=== PATIENT | female | born 1945 | race Caucasian/White ===

== ENCOUNTER 2019-11-02 07:12 | Inpatient (IN) | payer MEDICARE ==
[2019-11-02 10:01] LABS: CKMB 9.2 ng/mL (0-6.6)
[2019-11-02] MEDS ORDERED: Bisacodyl 5 MG TAB PO PRN (11:41)
[2019-11-02] MEDS ORDERED: Acetaminophen 325 MG TAB PO PRN (11:41)
[2019-11-02] MEDS ORDERED: Dextrose 5% in Water 1,000 ML IV PRN (11:54)
[2019-11-02] MEDS ORDERED: Dextrose 50% Abboject 50 ML SYRINGE SLOW IVP PRN (11:54)
--- NOTE | 2019-11-02 12:19 | HP ---
PRIMARY CARE PROVIDER: Fer Justice MD CHIEF COMPLAINT: Fall. HISTORY OF PRESENT ILLNESS: Ms. Hairston is a pleasant 74-year-old lady, who was seen at [facility] on November 02, 2019, following transfer from emergency room at [place]. The patient lives alone at home. She reports that she has been having frequent falls over the last couple of months. She reports falling on a weekly basis. She reports that when she is walking, she loses balance and falls. She denies any dizziness or chest pain. She denies any palpitations. She denies any loss of consciousness. She fell yesterday. She reports that she was on the ground for about 40 minutes because she could not get up. She was subsequently found by her daughter's fiance and taken to the emergency room. She denies any dysuria or increased frequency of urination. She denies any nausea or vomiting. REVIEW OF SYSTEMS: All systems were reviewed and found to be negative except for the pertinent positives mentioned above. PAST MEDICAL HISTORY: Coronary artery disease, myocardial infarction, diabetes mellitus type 2, dyslipidemia, and hypertension. PAST SURGICAL HISTORY: Cancer surgery, coronary artery bypass graft, and tubal ligation. PSYCHIATRIC HISTORY: Depression. SOCIAL HISTORY: The patient denies tobacco use, alcohol use, or recreational drug use. FAMILY HISTORY: Coronary artery disease in father and brother. ALLERGIES: NO KNOWN DRUG ALLERGIES. CURRENT MEDICATIONS: 1. Amlodipine 5 mg daily. 2. Sertraline 50 mg daily. 3. Lisinopril 20 mg 2 times a day. 4. Metformin 500 mg 2 times a day. 5. Crestor 5 mg daily. 6. Hydrochlorothiazide 25 mg daily. PHYSICAL EXAMINATION: GENERAL: On examination, Ms. Hairston is awake and alert, not in acute distress. VITAL SIGNS: Blood pressure is 170/59, pulse 84, respiratory rate 19, and oxygen saturation 98% on room air. She is afebrile. EYES: No scleral icterus. No conjunctival pallor. ENT: Moist mucosal membranes. No oropharyngeal erythema or exudates. NECK: Supple and nontender. Trachea is midline. RESPIRATORY: Accessory muscles of breathing are not active. Chest wall movements are symmetric bilaterally. Lungs are clear to auscultation without wheeze, rhonchi, or crepitations. CARDIOVASCULAR: S1 and S2 are heard, regular. Peripheral pulses palpable. ABDOMEN: Soft and nontender. Bowel sounds are heard. NEUROLOGIC: Cranial nerves 2 through 12 are intact. No focal motor or sensory deficits. Deep tendon reflexes 2+, plantars downgoing bilaterally. MUSCULOSKELETAL: Power is 5/5 in all 4 extremities. SKIN: No rashes. LYMPHATIC: No cervical lymphadenopathy. PSYCHIATRIC: Normal mood. Normal affect. The patient is oriented to person, place, month, and year, not to date. LABORATORY DATA: Ms. Hairston's labs and investigations were reviewed. I reviewed her electrocardiogram, which shows normal sinus rhythm, no ST changes to suggest an acute coronary syndrome. I also reviewed her chest x-ray, which does not show any pulmonary infiltrates. Noncontrast CT scan of the brain was unremarkable. Facial bones CT did not show any acute facial bone fracture. She has leukocytosis of 15,300 white cells, of which 82% are neutrophils. Hemoglobin and platelet count are normal. Sodium is normal. Potassium is decreased at 3.4. Creatinine is normal at 0.62. Blood urea nitrogen is elevated at 31. AST is elevated at 81. ALT, alkaline phosphatase, and bilirubin levels are normal. CK is elevated at 1615. Troponin I is indeterminate at 0.039. BNP is normal. Urinalysis is negative for nitrite and leukocyte esterase. ASSESSMENT AND PLAN: Ms. Hairston is a pleasant 74-year-old lady, who was seen at [facility] on November 02, 2019. Her problem list includes: 1. Rhabdomyolysis: Ms. Hairston is presenting with rhabdomyolysis. She will be admitted to the hospital for IV hydration and rechecking her CK level. Please note, her renal function is normal at this time. 2. Falls: Physical Therapy/Occupational Therapy evaluation and treatment, further management depending on the recommendations. 3. Coronary artery disease: This appears to be stable. The patient's troponin I is indeterminate, but she denies any chest pain. We will continue to monitor. 4. Diabetes mellitus type 2: Start Accu-Cheks and insulin sliding scale. 5. Hypertension: Monitor vital signs, titrate antihypertensives as needed. 6. Depression: Mild, stable. 7. Dyslipidemia: Continue Crestor. Many thanks for allowing me to participate in your patient's care. Please feel free to contact me with any questions or concerns. LEVEL OF RISK: High. LEVEL OF COMPLEXITY: High. Job ID: [id number]
[2019-11-02 13:43] LABS: Troponin I 0.032 ng/mL (< 0.028)
[2019-11-02 16:12] LABS: Troponin I 0.038 ng/mL (< 0.028)
[2019-11-02] MEDS ORDERED: Metoprolol Tartrate 100 MG TAB PO SCH (23:59)
[2019-11-03] MEDS: Sodium Chloride 0.9% 1,000 ML IV SCH ×5 (01:09→23:42)
[2019-11-03 04:44] LABS: #Eosinphils 0.2 thou/uL (0.0-0.7); #Lymphocytes 1.9 thou/uL (1.20-3.40); #Monocytes 1.1 thou/uL (0.11-0.59); #Neutrophils 6.2 thou/uL (1.40-6.50); %Basophils 0.1 % (0.0-1.0); %Eosinophils 2.2 % (0.0-10.0); %Lymphocytes 20.6 % (21.0-51.0); %Monocytes 11.3 % (0.0-10.0); %Neutrophils 65.9 % (42.0-75.0); Hemoglobin 11.4 g/dL (12.0-16.0); Mean Corpuscular HGB CONC 32.4 g/dL (32.0-36.0); Mean Corpuscular Hemoglobin 29.6 pg (27.0-31.0); Mean Corpuscular Volume 91.3 fL (78.0-98.0); Platelet Count 220 thou/uL (130-400); RBC Distribution Width 11.8 % (11.5-14.5); Red Blood Cell (RBC) Count 3.87 mill/uL (4.20-5.40); White Blood Cell (WBC) Count 9.5 thou/uL (4.8-10.8)
[2019-11-03 05:09] LABS: Anion Gap 11 mmol/L (10-20); BUN (Urea Nitrogen) 15 mg/dL (9.8-20.1); CK (CPK) 574 U/L (29-168); Calc. Creatinine Clearance 91 mL/min (70-130); Calcium 8.5 mg/dL (7.8-10.44); Carbon Dioxide 27 mmol/L (23-31); Chloride 102 mmol/L (98-107); Estimated GFR-MDRD Greater than 90; Glucose 143 mg/dL (83-110); Potassium 3.1 mmol/L (3.5-5.1); Sodium 137 mmol/L (136-145)
[2019-11-03] MEDS: Potassium Chloride 20 MEQ TAB PO SCH ×2 (09:33→13:53)
[2019-11-03] MEDS: Metoprolol Tartrate 100 MG TAB PO SCH ×2 (09:34→21:06)
[2019-11-03] MEDS: Enoxaparin Sodium 40 MG/0.4 ML SYRINGE SC SCH (09:34)
[2019-11-03] MEDS: Amlodipine 5 MG TAB PO SCH (09:34)
--- NOTE | 2019-11-03 11:57 | CT ---
Exam: Head CT without contrast HISTORY: Stroke protocol. Left arm weakness and left facial droop. COMPARISON: 11/01/2019 FINDINGS: Hemorrhage: No intraparenchymal hemorrhage or extra-axial hematoma. Brain parenchyma: Cortical dominguez-white matter differentiation is preserved. No mass effect or midline shift. Basilar cisterns are patent.Chronic small vessel ischemic changes white matter are redemonstrated. Continued evolutionary changes due to a subacute infarct centered in the right caudat e nucleus and right deep dominguez matter structures. This area of concern currently measures 2.7 x 1.8 cm, peripherally measuring 2.4 x 2.0 cm. Stable prominent sulcus along the medial left and right occi pital lobes. Ventricular system: Persistent dilatation of ventricular system, unchanged. Calvarium: Intact. Sinuses and mastoid air cells: Minimal mucosal thickening of the left ethmoid air cells. Intact masto id air cells IMPRESSION: 1. Expected evolutionary changes involving a subacute infarct in the right deep dominguez matter structure s. 2. Results study discussed with Dr. Grande 11/03/2019 at 11:54 AM Code CR
--- NOTE | 2019-11-03 12:28 | CT ---
EXAM: CT ANGIOGRAM OF THE HEAD AND NECK: INDICATION: Stroke. COMPARISON: None. TECHNIQUE: CT angiogram of the head and neck are performed in the axial plane. Three-dimensional reformatted brown ges are submitted for interpretation. FINDINGS: CTA OF THE HEAD WITH AND WITHOUT CONTRAST: POSTCONTRAST CT OF BRAIN: Pathologic enhancement: No pathologic enhancement the brain. POSTCONTRAST SOFT TISSUE NECK CT: Sinuses: Adequate aeration of the paranasal sinuses. Orbits: Bilateral ocular lenses are appropriately located. Both globes are intact. Retrobulbar fat is preserved. Symmetric attenuation the optic nerves and ocular rectus muscles. Salivary glands:Symmetric attenuation of the parotid and submandibular glands . Thyroid gland: Unremarkable. Lymph nodes: No evidence of lymphadenopathy by size criteria. Paraspinal muscles: Symmetric attenuation of the sternocleidomastoid muscles. Appropriate attenuation of the paraspinal muscles. Cervical spine:Vertebral body height is maintained. No fracture. No significant central canal stenosi s or significant neural foraminal narrowing. Limited evaluation by technique. Upper mediastinum and lung apices: No acute abnormality. CTA OF THE NECK WITH CONTRAST: Aorta: Atherosclerosis of the aorta. Right carotid artery: Appropriate enhancement and luminal diameter of the origin of the right carotid artery. The common carotid artery, carotid bifurcation and internal carotid artery have appropriate enhancement and luminal diameter. There is calcified plaque involving the carotid bifurc ation and internal carotid artery. No significant stenosis based upon NASCET criteria. There is short segment moderate stenosis involving origin of the right external carotid artery. Left carotid: Left carotid artery origin has appropriate enhancement and luminal diameter. The left c ommon carotid artery, carotid bifurcation and internal cardioverter appropriate enhancement and luminal diameter. There is calcified plaque involving the carotid bifurcation and internal carotid ar saeed. No significant stenosis based upon NASCET criteria. Subclavian arteries:Patent and symmetric. Vertebral arteries:Cervical vertebral arteries are patent throughout their course in the neck. Domina nt right vertebral artery. CTA OF THE BRAIN: Intracranial internal carotid arteries:Calcified plaque in bilateral cavernous and paraclinoid segmen ts without significant stenosis. Anterior circulation: Symmetric enhancement and luminal diameter the A1 and M1 segments. Proximal A2 segments and proximal MCA branches have symmetric enhancement and luminal diameter. Intracranial vertebral arteries and posterior circulation: Atherosclerosis involving the right verteb ral artery. Left vertebral artery may have a PICA termination. The right vertebral artery is the sole/main supplying artery to the basilar artery. Appropriate enhancement and luminal diameter of the basilar artery. Basilar artery terminates at the level of the superior cerebellar artery. Both plumber apprentice have a origin. Symmetric enhancement and luminal diameter. IMPRESSION: 1. Calcified and noncalcified plaque involving bilateral carotid bifurcation and proximal internal ca rotid arteries. No significant stenosis based upon NASCET criteria. 2. No significant stenosis or vascular occlusion at the level of the [place] of [place]. 3. Results study discussed with Dr. Grande 11/03/2019 12:27 PM. Code CR Transcribed Date/Time: 11/03/2019 12:38 PM
--- NOTE | 2019-11-03 13:20 | MRI ---
MRI of thebrain: 11/03/2019 COMPARISON:None available HISTORY:Evaluate for acute infarction, altered mental status TECHNIQUE: Multiplanar multisequence MR imaging of thebrain without contrast Findings:There is a focus of restricted diffusion involving the periventricular white matter adjacent to the frontal horn of the lateral ventricle on the right extending inferiorly to involve the superior aspect of the right lentiform nucleus, consistent with acute infarction. There is correspond ing increased T2 and FLAIR signal in this region, which measures up to approximately 2.8 cm. There is a second area of restricted diffusion suggesting acute infarction within the posterior left occipital region measuring 1.0 cm with corresponding increased T2 and FLAIR signal. Extensive periventricular, deep, and subcortical white matter T2 and FLAIR hyperintensity, evidence of prominen t small vessel disease. Axial gradient echo imaging demonstrates no evidence for intracranial hemorrhage. Arterial flow voids at the axial level of the skull base appear grossly unremarkable. Regional bone m arrow signal intensity appears within normal limits. There is a mild/moderate degree of diffuse cerebral and cerebellar volume loss. IMPRESSION:Areas of acute infarction within the left occipital lobe and the right lentiform nucleus/p eriventricular white matter as detailed above.
[2019-11-03] MEDS ORDERED: Aspirin 325 MG TAB PO SCH (14:15)
[2019-11-03] MEDS ORDERED: Iopamidol-370 76% 500 ML 1 ML ONE (15:22)
--- NOTE | 2019-11-03 18:40 | PDOC.HOSPP ---
- Subjective Encounter Date: 11/03/19 Encounter Time: 18:39 Subjective: Pt seen for followup re: ischemic CVA. c/o on and off left sided weakness. - Objective Vital Signs & Weight: Vital Signs (12 hours) Temp Pulse Pulse Pulse Pulse Pulse Pulse 11/03/19 11:58 98.5 F 66 11/03/19 11:26 64 66 65 65 73 11/03/19 11:00 98.5 F 68 11/03/19 10:44 11/03/19 10:38 11/03/19 08:10 11/03/19 07:46 98.1 F 85 Pulse Pulse Pulse Resp Resp Resp Resp 11/03/19 11:58 16 11/03/19 11:26 76 12 14 14 11/03/19 11:00 14 11/03/19 10:44 69 64 11/03/19 10:38 69 64 11/03/19 08:10 11/03/19 07:46 12 Resp Resp Resp BP BP BP BP 11/03/19 11:58 11/03/19 11:26 12 12 14 157/70 H 152/46 H 154/60 H 165/72 H 11/03/19 11:00 11/03/19 10:44 11/03/19 10:38 11/03/19 08:10 11/03/19 07:46 BP BP BP BP BP Pulse Ox Pulse Ox 11/03/19 11:58 186/74 H 96 11/03/19 11:26 179/71 H 159/91 H 96 11/03/19 11:00 192/74 H 98 11/03/19 10:44 126/82 131/60 11/03/19 10:38 126/82 131/60 11/03/19 08:10 99 11/03/19 07:46 185/74 H 98 Pulse Ox Pulse Ox Pulse Ox Pulse Ox 11/03/19 11:58 11/03/19 11:26 97 97 96 97 11/03/19 11:00 11/03/19 10:44 11/03/19 10:38 11/03/19 08:10 11/03/19 07:46 Weight Weight 160 lb 1.6 oz I&O: 11/02/19 11/03/19 11/04/19 06:59 06:59 06:59 Intake Total 810 Output Total 725 Balance 85 Result Diagrams: 11/04/19 04:48 11/04/19 04:48 Additional Labs: Accuchecks 11/03/19 11/03/19 11/03/19 11:27 06:05 00:24 POC Glucose 216 H 133 H 142 H Labs and MARs reviewed by me EKG Reviewed by me: Yes (Tele: NSR) Hospitalist ROS - Review of Systems Respiratory: denies: cough, shortness of breath, SOB with excertion, pleuritic pain, wheezing Cardiovascular: denies: chest pain, palpitations, orthopnea, paroxysmal noc. dyspnea, edema, light headedness Gastrointestinal: denies: nausea, vomiting, abdominal pain, diarrhea, constipation, melena, hematochezia Genitourinary: denies: dysuria, frequency, incontinence, hematuria, retention Neurological: reports: weakness. denies: numbness, incoordination, change in speech, confusion, seizures - Medication Medications: Active Medications Generic Name Dose Route Start Last Admin Trade Name Freq PRN Reason Stop Dose Admin Amlodipine Besylate 5 mg 11/03/19 09:00 11/03/19 09:34 Norvasc PO 5 mg DAILY YOCASTA Administration Enoxaparin Sodium 40 mg 11/03/19 09:00 11/03/19 09:34 Lovenox SC 40 mg 0900 YOCASTA Administration Sodium Chloride 1,000 mls @ 100 mls/hr 11/02/19 12:00 11/03/19 09:40 Normal Saline 0.9% IV 1,000 mls .Q10H YOCASTA Administration Metoprolol Tartrate 100 mg 11/03/19 09:00 11/03/19 09:34 Lopressor PO 100 mg BID YOCASTA Administration Sodium Chloride 10 ml 11/03/19 09:00 11/03/19 09:34 Flush - Normal Saline IVF 10 ml Q12HR YOCASTA Administration - Exam General Appearance: awake alert Eye: PERRL ENT: normocephalic atraumatic, moist mucosa Neck: supple, symmetric, no thyromegaly, no lymphadenopathy Heart: RRR, no gallops, no rubs, normal peripheral pulses Respiratory: CTAB, no wheezes, no rales, no ronchi, normal chest expansion Gastrointestinal: soft, non-tender, non-distended, normal bowel sounds Psychiatric: normal affect, normal behavior, oriented to person, oriented to place Hosp A/P (1) Acute CVA (cerebrovascular accident) Code(s): I63.9 - CEREBRAL INFARCTION, UNSPECIFIED Status: Acute (2) Rhabdomyolysis Code(s): M62.82 - RHABDOMYOLYSIS Status: Acute (3) Hypokalemia Code(s): E87.6 - HYPOKALEMIA Status: Acute (4) CAD (coronary artery disease) Code(s): I25.10 - ATHSCL HEART DISEASE OF [place] CORONARY ARTERY W/O ANG PCTRS Status: Chronic (5) DM2 (diabetes mellitus, type 2) Status: Chronic (6) Dyslipidemia Code(s): E78.5 - HYPERLIPIDEMIA, UNSPECIFIED Status: Chronic (7) HTN (hypertension) Code(s): I10 - ESSENTIAL (PRIMARY) HYPERTENSION Status: Chronic - Plan plan discussed w/ family, PT/OT, speech therapy Pt reports left sided weakness has been going on and off for last week or so and started after previous fall (not the fall that hospitalized her this time) ischemic CVA in left occipital lobe and right lentiform nucleus. Start aspirin, continue statin. Consult neurology. Pt had Code [place] earlier today, had CT angio brain and neck. No significant stenoses. 2D echo report pending. CK improving. Continue accuchecks and insulin sliding scale. Replace potassium for hypokalemia.
--- NOTE | 2019-11-03 20:32 | CON ---
DATE OF CONSULTATION: 11/03/2019 CONSULTING PHYSICIAN: Hospitalist Service. IMPRESSION: 1. Small left occipital and larger right subcortical infarct involving the periventricular and lentiform nucleus with secondary left-sided weakness. 2. Hypertension. 3. Hyperlipidemia. 4. Coronary artery disease. PLAN: 1. Review echocardiogram. 2. Continue aspirin and a statin. 3. Consider need for anticoagulation depending on the echocardiogram results. HISTORY OF PRESENT ILLNESS: Ms. Hairston is a 74-year-old woman who came in with some left-sided weakness. Her MRI confirmed a fairly large subcortical infarct on the right. There is a tiny area of infarct in the left occipital lobe. Her CT angiogram did not show any significant stenosis. Her CK was mildly elevated at 574. She is mildly hypertensive. She reports she is not consistent about taking her aspirin. PAST MEDICAL HISTORY: Diabetes, hypertension, coronary artery disease, hyperlipidemia. PAST SURGICAL HISTORY: CABG. ALLERGIES: NONE REPORTED. SOCIAL HISTORY: Unremarkable. MEDICATION LIST: Reviewed. REVIEW OF SYSTEMS: 10-system review of systems is otherwise negative. PHYSICAL EXAMINATION: VITAL SIGNS: Blood pressure 192/74, pulse 68, respirations 14. HEENT: Pupils are equal and reactive. Conjunctivae clear. Oropharynx clear. NECK: Supple. EXTREMITIES: No cyanosis or edema. NEUROLOGIC: She is alert and cooperative. Her speech is fluent and clear. There is no facial asymmetry noted. She had some partial antigravity strength in the left arm and leg. Sensation was intact to touch. No abnormal movements were seen. Gait was not tested. LABORATORY DATA: EKG shows a sinus rhythm. SUMMARY: Elderly lady with large subcortical infarct on the left and it is probably thrombotic in origin. The tiny area of occipital infarct would raise a question of a cardioembolic event. We will review the echocardiogram, but would otherwise go with an antiplatelet therapy regimen. Job ID: [id number]
[2019-11-03] MEDS: Atorvastatin Calcium 40 MG TAB PO SCH (21:06)
[2019-11-04 05:11] LABS: #Eosinphils 0.3 thou/uL (0.0-0.7); #Monocytes 0.9 thou/uL (0.11-0.59); #Neutrophils 4.5 thou/uL (1.40-6.50); %Basophils 0.5 % (0.0-1.0); %Lymphocytes 34.6 % (21.0-51.0); %Monocytes 10.8 % (0.0-10.0); %Neutrophils 51.2 % (42.0-75.0); Hemoglobin 11.1 g/dL (12.0-16.0); Mean Corpuscular HGB CONC 33.7 g/dL (32.0-36.0); Mean Corpuscular Hemoglobin 30.6 pg (27.0-31.0); Platelet Count 197 thou/uL (130-400); RBC Distribution Width 11.7 % (11.5-14.5); Red Blood Cell (RBC) Count 3.63 mill/uL (4.20-5.40); White Blood Cell (WBC) Count 8.7 thou/uL (4.8-10.8)
[2019-11-04 05:39] LABS: Anion Gap 11 mmol/L (10-20); BUN (Urea Nitrogen) 9 mg/dL (9.8-20.1); CK (CPK) 206 U/L (29-168); Calc. Creatinine Clearance 98 mL/min (70-130); Calcium 8.6 mg/dL (7.8-10.44); Carbon Dioxide 26 mmol/L (23-31); Cardiac Risk 3.2 (Less than 4.5); Chloride 104 mmol/L (98-107); Cholesterol 152 mg/dl (< 200 Desired); Estimated GFR-MDRD Greater than 90; Glucose 121 mg/dL (83-110); HDL Cholesterol 47 mg/dL (>60 Neg Risk); LDL Cholesterol, Calculated 93 mg/dL; Potassium 3.9 mmol/L (3.5-5.1); Sodium 137 mmol/L (136-145); Triglycerides 62 mg/dL (Less than 150)
[2019-11-04] MEDS: Enoxaparin Sodium 40 MG/0.4 ML SYRINGE SC SCH (10:28)
[2019-11-04] MEDS: Aspirin 325 mg Enteric Coated Tablet PO SCH (10:28)
[2019-11-04] MEDS: Amlodipine 5 MG TAB PO SCH (10:29)
[2019-11-04] MEDS: Metoprolol Tartrate 100 MG TAB PO SCH ×2 (10:29→21:09)
[2019-11-04] MEDS: Sodium Chloride 0.9% 1,000 ML IV SCH (10:48)
[2019-11-04 12:13] VITALS: BMI 29.2
[2019-11-04] MEDS: HumaLOG 300 UNITS/3 ML VIAL SC PRN (13:06)
--- NOTE | 2019-11-04 15:15 | PQF ---
CLINICAL DOCUMENTATION IMPROVEMENT CLARIFICATION FORM: ICD-10 Updated PLEASE DO AN ADDENDUM TO THE PROGRESS NOTE WITH ANY DOCUMENTATION UPDATES OR ADDITIONS AND CARRY THROUGH TO DC SUMMARY. THANK YOU. DATE: 11/04/19 ATTN: DR. REHMAN Please exercise your independent, professional judgment in responding to the clarification form. Clinical indicators are provided on the bottom of this form for your review Diagnosis: "ACUTE CVA" Present on Admission (POA): [ x ] Yes [ ] No [ ] Unable to determine For continuity of documentation, please document condition throughout progress notes and discharge summary. Thank You. CLINICAL INDICATORS - SIGNS / SYMPTOMS / LABS/ RSULTS AND LOCATION IN MR PROGRESS NOTE 11/02: "ACUTE CVA" RISKS: FREQUENT FALLS AT HOME (H&P 11/01) HYPERTENSION (H&P 11/01) H/O DIABETES (H&P 11/01) TREATMENT: BRAIN CT 11/02 CT ANGIO [place] 11/02 NEUROLOGY CONSULT 11/02 LOPRESSOR 11/02-PRESENT) NORVASC (11/02-PRESENT) LOVENOX (11/02-PRESENT) ECOTRIN (START 11/03) (This form is maintained as a part of the permanent medical record) 2014 [employer]. All Rights Reserved BREANNA [email or web address] Office: [phone] [facility]
[2019-11-04] MEDS ORDERED: Clopidogrel Bisulfate 75 MG TAB PO SCH (17:15)
[2019-11-04] MEDS: Acyclovir 400 mg Tablet PO SCH (21:08)
[2019-11-04] MEDS: Atorvastatin Calcium 40 MG TAB PO SCH (21:09)
--- NOTE | 2019-11-04 22:56 | PDOC.HOSPP ---
- Subjective Encounter Date: 11/04/19 Subjective: Feels ok. Has a lesion of the left upper back and sacrum. Hx of shingles and afraid it is recurring. - Objective Vital Signs & Weight: Vital Signs (12 hours) Temp Pulse Resp BP Pulse Ox 11/04/19 20:10 97.5 F L 63 14 156/65 H 96 11/04/19 15:27 98.1 F 67 25 H 162/80 H 97 11/04/19 11:25 98.0 F 63 14 158/72 H 98 Weight Admit Weight 162 lb 8 oz Weight 160 lb 1.6 oz I&O: 11/03/19 11/04/19 11/05/19 06:59 06:59 06:59 Intake Total 810 1201 Output Total 075 244 5857 Balance 85 -500 -920 Result Diagrams: 11/04/19 04:48 11/04/19 04:48 Additional Labs: Accuchecks 11/04/19 11/04/19 11/04/19 21:08 16:55 11:07 POC Glucose 152 H 109 258 H 11/04/19 05:55 POC Glucose 126 H Hospitalist ROS - Medication Medications: Active Medications Generic Name Dose Route Start Last Admin Trade Name Freq PRN Reason Stop Dose Admin Acetaminophen 650 mg 11/02/19 11:41 11/04/19 17:56 Tylenol PO 650 mg Q4H PRN Administration Headache/Fever/Mild Pain (1-3) Acyclovir 800 mg 11/04/19 20:00 11/04/19 21:08 Zovirax PO 800 mg 5XD YOCASTA Administration Amlodipine Besylate 5 mg 11/03/19 09:00 11/04/19 10:29 Norvasc PO 5 mg DAILY YOCASTA Administration Aspirin 325 mg 11/04/19 09:00 11/04/19 10:28 Ecotrin PO 325 mg DAILY YOCASTA Administration Atorvastatin Calcium 40 mg 11/03/19 21:00 11/04/19 21:09 Lipitor PO 40 mg HS YOCASTA Administration Enoxaparin Sodium 40 mg 11/03/19 09:00 11/04/19 10:28 Lovenox SC 40 mg 0900 YOCASTA Administration Insulin Human Lispro 0 units 11/02/19 11:54 11/04/19 13:06 Humalog SC 4 unit .MILD SLIDING SCALE PRN Administration Mild Correctional Scale Metoprolol Tartrate 100 mg 11/03/19 09:00 11/04/19 21:09 Lopressor PO 100 mg BID YOCASTA Administration Sodium Chloride 10 ml 11/03/19 09:00 11/04/19 21:14 Flush - Normal Saline IVF 10 ml Q12HR YOCASTA Administration - Exam General Appearance: NAD, awake alert Heart: RRR, no murmur, no gallops, no rubs, normal peripheral pulses Respiratory: CTAB, no wheezes, no rales, no ronchi, normal chest expansion, no tachypnea, normal percussion Gastrointestinal: soft, non-tender, non-distended, normal bowel sounds, no palpable masses, no hepatomegaly, no splenomegaly, no bruit Extremities: no cyanosis, no clubbing, no edema Skin: normal turgor Skin - other findings: Small patch of vessicles of the sacrum (1 cm) eryth base. Neurological - other findings: Left sided weakness. Musculoskeletal: normal tone Psychiatric: normal affect, normal behavior, A&O x 3 Hosp A/P (1) Vesicles Code(s): R23.8 - OTHER SKIN CHANGES Status: Acute (2) Acute CVA (cerebrovascular accident) Code(s): I63.9 - CEREBRAL INFARCTION, UNSPECIFIED Status: Acute (3) Rhabdomyolysis Code(s): M62.82 - RHABDOMYOLYSIS Status: Acute (4) CAD (coronary artery disease) Code(s): I25.10 - ATHSCL HEART DISEASE OF [place] CORONARY ARTERY W/O ANG PCTRS Status: Chronic (5) DM2 (diabetes mellitus, type 2) Status: Chronic (6) Dyslipidemia Code(s): E78.5 - HYPERLIPIDEMIA, UNSPECIFIED Status: Chronic (7) HTN (hypertension) Code(s): I10 - ESSENTIAL (PRIMARY) HYPERTENSION Status: Chronic - Plan Awaiting placement at rehab. Echo was ok. Stay with the ASA and Plavix. Continue PT. Don't think the vessicles are shingles, but can't rule it out. Start acyclovir and reassess in am.
[2019-11-05] MEDS: Acyclovir 400 mg Tablet PO SCH ×4 (02:24→16:44)
[2019-11-05 06:50] LABS: #Eosinphils 0.2 thou/uL (0.0-0.7); #Lymphocytes 2.4 thou/uL (1.20-3.40); #Monocytes 0.7 thou/uL (0.11-0.59); #Neutrophils 3.2 thou/uL (1.40-6.50); %Basophils 0.5 % (0.0-1.0); %Eosinophils 3.7 % (0.0-10.0); %Lymphocytes 36.4 % (21.0-51.0); %Monocytes 11.1 % (0.0-10.0); %Neutrophils 48.4 % (42.0-75.0); Hemoglobin 11.7 g/dL (12.0-16.0); Mean Corpuscular HGB CONC 33.4 g/dL (32.0-36.0); Mean Corpuscular Hemoglobin 30.5 pg (27.0-31.0); Mean Corpuscular Volume 91.3 fL (78.0-98.0); Mean Platelet Volume 9.3 fL (7.4-10.4); Platelet Count 209 thou/uL (130-400); RBC Distribution Width 11.7 % (11.5-14.5); Red Blood Cell (RBC) Count 3.84 mill/uL (4.20-5.40); White Blood Cell (WBC) Count 6.7 thou/uL (4.8-10.8)
[2019-11-05 07:09] LABS: Anion Gap 10 mmol/L (10-20); BUN (Urea Nitrogen) 11 mg/dL (9.8-20.1); Calc. Creatinine Clearance 93 mL/min (70-130); Calcium 8.7 mg/dL (7.8-10.44); Carbon Dioxide 28 mmol/L (23-31); Chloride 102 mmol/L (98-107); Estimated GFR-MDRD Greater than 90; Glucose 123 mg/dL (83-110); Potassium 3.3 mmol/L (3.5-5.1); Sodium 137 mmol/L (136-145)
[2019-11-05] MEDS ORDERED: Clopidogrel Bisulfate 75 MG TAB PO SCH (09:00)
[2019-11-05] MEDS ORDERED: Aspirin Chewable 81 MG TAB PO SCH (09:00)
[2019-11-05] MEDS: Enoxaparin Sodium 40 MG/0.4 ML SYRINGE SC SCH (09:24)
[2019-11-05] MEDS: Metoprolol Tartrate 100 MG TAB PO SCH (09:24)
[2019-11-05] MEDS: Amlodipine 5 MG TAB PO SCH (09:25)
[2019-11-05] MEDS: Aspirin 325 mg Enteric Coated Tablet PO SCH (10:04)
[2019-11-05] MEDS: HumaLOG 300 UNITS/3 ML VIAL SC PRN (11:00)
[2019-11-05] MEDS ORDERED: Potassium Chloride 20 MEQ TAB PO SCH (16:00)
[2019-11-05 16:02] VITALS: BP 153/73; TEMP 98.4
--- NOTE | 2019-11-07 06:41 | DIS ---
DATE OF ADMISSION: 11/02/2019 DATE OF DISCHARGE: 11/05/2019 DISCHARGE DIAGNOSES: 1. 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 2. Left paresis. 3. Frequent falls. 4. Mild rhabdomyolysis. 5. Hypokalemia. 6. History of coronary artery disease. 7. Diabetes mellitus. 8. Hyperlipidemia. 9. Hypertension. 10. Vesicles of the sacrum concerning for the possibility of varicella zoster. HISTORY OF PRESENT ILLNESS: The patient is a 74-year-old female who presented via the emergency department. She had reported frequent recent falls and had an episode in which she had fallen and had not been able to get up for about 40 minutes. She was subsequently brought to the emergency department for evaluation. She had a CT of the brain showing some expected evolutionary changes involving the subacute infarct of the right deep dominguze matter structures. However, the patient subsequently had some neurologic symptoms that progressed. A code green was called. She subsequently had an MRI of the brain and CT angio, which revealed the above findings of the ischemic CVA. She was seen in consultation by Neurology, who recommended followup of the echocardiogram given the multiple bilateral sites, concern was for embolic nature. However, echocardiogram was essentially normal with an EF of 55% to 60%; therefore, the recommendation was to maintain anti-platelet therapy, which was done. She continued to receive OT and PT in the hospital and the family worked with her and Case Management to get disposition to rehab near [place] closer to the family. The patient was ultimately accepted. She also was noted to have a very small 1 cm area of some pustular vesicles at the upper gluteal cleft sacral area. It was unclear, if these were zoster or if they were simply some dermatitis that did have a bit of an erythematous base. There were no other patches and there was no pain other than the direct palpation of this area. She was empirically started on acyclovir. PHYSICAL EXAMINATION: VITAL SIGNS: On the day of discharge, temperature is 98.4, pulse 60, respirations 18, O2 saturation 96% on room air. GENERAL: She was awake and alert, pleasant cooperative. HEART: Regular rate and rhythm. LUNGS: Clear bilaterally. ABDOMEN: Benign. EXTREMITIES: No edema. DISPOSITION: The patient was discharged to [facility] in [place], [place] and they will be taking care of transportation needs from there. DISCHARGE INSTRUCTION: Activity: As tolerated. Diet: She will remain on a diabetic heart healthy diet. She will have OT and PT. DISCHARGE MEDICATIONS: Include: 1. Tylenol p.r.n. 2. Acyclovir 800 mg 5 times daily. 3. Aspirin 81 mg daily. 4. Atorvastatin 40 mg at bedtime. 5. Dulcolax 10 mg p.r.n. 6. Plavix 75 mg daily. 7. Metformin 500 mg b.i.d. 8. Hydrochlorothiazide 25 mg daily. 9. Amlodipine 5 mg daily. 10. Sertraline 50 mg daily. 11. Metoprolol 100 mg b.i.d. 12. Lisinopril 20 mg b.i.d. She will be transferred to [facility] in [place]. She will follow up with her PCP of choice and she can return to the hospital at anytime, if she have the need to do so. TIME SPENT: Total time in discharge activities was 39 minutes. Job ID: [id number]
== END 2019-11-05 17:17 | DRG 65 ==
LOC: ERS 07:12 → ERHOLD 09:31 → 2NO 18:04 → 2SE 11-03 17:12
PROVIDERS: ADMIT Internal Medicine; ATTEND Internal Medicine
DX: I63.89 Other cerebral infarction (principal); M62.82 Rhabdomyolysis; G81.94 Hemiplegia, unspecified affecting left nondominant side; I25.10 Atherosclerotic heart disease of native coronary artery without angina pectoris; E11.9 Type 2 diabetes mellitus without complications; E78.5 Hyperlipidemia, unspecified; I10 Essential (primary) hypertension; F32.9 Major depressive disorder, single episode, unspecified; R29.6 Repeated falls; R23.8 Other skin changes; R40.2142 Coma scale, eyes open, spontaneous, at arrival to emergency department; R40.2252 Coma scale, best verbal response, oriented, at arrival to emergency department; R40.2362 Coma scale, best motor response, obeys commands, at arrival to emergency department; E87.6 Hypokalemia; I25.2 Old myocardial infarction; Z95.1 Presence of aortocoronary bypass graft; Z98.51 Tubal ligation status; Z79.84 Long term (current) use of oral hypoglycemic drugs
CPT/HCPCS: 36415; 36416; 70450; 70496; 70498; 70551; 80048; 80061; 82550; 82553; 84484; 85025; 93306; J1650; Q9967

== ENCOUNTER 2022-05-21 09:48 | Inpatient (IN) | payer MEDICARE ==
[~2022-05-21 09:48] MED LIST: Iopamidol-370 76% 500 ML 1 ML ONE
[2022-05-21 10:25] LABS: PTT 23.3 sec (22.9-36.1); Prothrombin Time 13.3 sec (12.0-14.7)
[2022-05-21 10:26] LABS: ALT (SGPT) 17 U/L (8-55); AST (SGOT) 27 U/L (5-34); Alkaline Phosphatase 115 U/L (40-110); Anion Gap 13 mmol/L (10-20); BUN (Urea Nitrogen) 23 mg/dL (9.8-20.1); Bilirubin, Total 0.7 mg/dL (0.2-1.2); CK (CPK) 47 U/L (29-168); Calc. Creatinine Clearance 0 mL/min (70-130); Calcium 9.8 mg/dL (7.8-10.44); Carbon Dioxide 26 mmol/L (23-31); Chloride 101 mmol/L (98-107); Estimated GFR 80; Globulin 3.3 g/dL (2.4-3.5); Glucose 148 mg/dL (83-110); Protein, Total 7.3 g/dL (5.8-8.1); Sodium 136 mmol/L (136-145)
[2022-05-21 10:27] LABS: #Basophils 0.1 thou/uL (0.0-0.2); #Eosinphils 0.1 thou/uL (0.0-0.7); #Lymphocytes 1.3 thou/uL (1.20-3.40); #Monocytes 0.5 thou/uL (0.11-0.59); #Neutrophils 5.2 thou/uL (1.40-6.50); %Basophils 0.8 % (0.0-1.0); %Eosinophils 1.4 % (0.0-10.0); %Lymphocytes 18.3 % (21.0-51.0); %Monocytes 6.8 % (0.0-10.0); %Neutrophils 72.8 % (42.0-75.0); Hemoglobin 12.9 g/dL (12.0-16.0); Mean Corpuscular HGB CONC 32.1 g/dL (32.0-36.0); Mean Corpuscular Hemoglobin 29.6 pg (27.0-31.0); Mean Corpuscular Volume 92.1 fL (78.0-98.0); Mean Platelet Volume 10.3 fL (7.4-10.4); Platelet Count 113 thou/uL (130-400); RBC Distribution Width 12.3 % (11.5-14.5); Red Blood Cell (RBC) Count 4.36 mill/uL (4.20-5.40); White Blood Cell (WBC) Count 8.7 thou/uL (4.8-10.8)
[2022-05-21 10:47] LABS: CKMB 1.4 ng/mL (0-6.6)
[2022-05-21] MEDS ORDERED: Aspirin 300 MG Suppository ONE (11:16)
[2022-05-21] MEDS ORDERED: Ondansetron ODT 4 MG TAB PO PRN (14:41)
[2022-05-21] MEDS ORDERED: Acetaminophen 325 MG TAB PO PRN (14:41)
[2022-05-21] MEDS ORDERED: Ondansetron PF 4 MG/2 ML Vial IVP PRN (14:41)
[2022-05-21] MEDS ORDERED: Acetaminophen 650 MG Suppository PR PRN (14:41)
[2022-05-21] MEDS ORDERED: hydrALAZINE 20 MG/ML VIAL SLOW IVP PRN (14:41)
[2022-05-21] MEDS ORDERED: Dextrose 50% Abboject 50 ML SYRINGE SLOW IVP PRN (14:49)
[2022-05-21] MEDS ORDERED: Insulin Regular 300 UNITS/3 ML VIAL SC PRN ×2 (14:49)
[2022-05-21] MEDS ORDERED: Dextrose 5% in Water 1,000 ML IV PRN (14:49)
[2022-05-21 17:36] LABS: CKMB 1.2 ng/mL (0-6.6)
[2022-05-21] MEDS: Atorvastatin Calcium 40 MG TAB PO SCH (19:49)
[2022-05-21 19:54] VITALS: BMI 28.1
[2022-05-21] MEDS ORDERED: Acetaminophen 325 MG Suppository PR PRN (20:16)
[2022-05-22 07:07] LABS: #Basophils 0.1 thou/uL (0.0-0.2); #Eosinphils 0.2 thou/uL (0.0-0.7); #Lymphocytes 1.8 thou/uL (1.20-3.40); #Monocytes 0.6 thou/uL (0.11-0.59); #Neutrophils 4.3 thou/uL (1.40-6.50); %Eosinophils 3.2 % (0.0-10.0); %Lymphocytes 26.1 % (21.0-51.0); %Monocytes 8.7 % (0.0-10.0); %Neutrophils 61.1 % (42.0-75.0); Hemoglobin 11.8 g/dL (12.0-16.0); Mean Corpuscular Hemoglobin 29.2 pg (27.0-31.0); Mean Corpuscular Volume 91.2 fL (78.0-98.0); Mean Platelet Volume 9.2 fL (7.4-10.4); Platelet Count 202 thou/uL (130-400); RBC Distribution Width 12.1 % (11.5-14.5); Red Blood Cell (RBC) Count 4.05 mill/uL (4.20-5.40)
[2022-05-22 07:33] LABS: Anion Gap 15 mmol/L (10-20); BUN (Urea Nitrogen) 19 mg/dL (9.8-20.1); Calc. Creatinine Clearance 75 mL/min (70-130); Carbon Dioxide 24 mmol/L (23-31); Chloride 101 mmol/L (98-107); Potassium 3.6 mmol/L (3.5-5.1); Sodium 136 mmol/L (136-145)
[2022-05-22 07:34] LABS: Calcium 9.4 mg/dL (7.8-10.44); Cardiac Risk 4.6 (Less than 4.5); Cholesterol 227 mg/dl (< 200 Desired); Estimated GFR 89; Glucose 125 mg/dL (83-110); HDL Cholesterol 49 mg/dL (>60 Neg Risk); LDL Cholesterol, Calculated 155 mg/dL; Triglycerides 116 mg/dL (Less than 150)
[2022-05-22] MEDS ORDERED: Enalaprilat Dihydrate 1.25 MG/ML VIAL SLOW IVP PRN ×2 (07:55→07:57)
[2022-05-22] MEDS ORDERED: Aspirin 300 MG Suppository PR SCH (09:00)
[2022-05-22] MEDS: Clopidogrel Bisulfate 75 MG TAB PO SCH (09:32)
[2022-05-22] MEDS ORDERED: Aspirin 325 mg Enteric Coated Tablet PO SCH ×2 (10:23→10:30)
[2022-05-22] MEDS ORDERED: Ondansetron ODT 4 MG TAB PO PRN (18:45)
[2022-05-22] MEDS: Atorvastatin Calcium 40 MG TAB PO SCH (21:34)
[2022-05-22] MEDS: Metoprolol Tartrate 50 MG TAB PO SCH (21:34)
[2022-05-23] MEDS: Acetaminophen 325 MG TAB PO SCH ×3 (00:47→12:19)
[2022-05-23 05:09] LABS: #Basophils 0.1 thou/uL (0.0-0.2); #Eosinphils 0.3 thou/uL (0.0-0.7); #Lymphocytes 1.9 thou/uL (1.20-3.40); #Monocytes 0.7 thou/uL (0.11-0.59); #Neutrophils 3.8 thou/uL (1.40-6.50); %Basophils 0.8 % (0.0-1.0); %Eosinophils 4.4 % (0.0-10.0); %Lymphocytes 28.6 % (21.0-51.0); %Neutrophils 56.2 % (42.0-75.0); Hemoglobin 11.3 g/dL (12.0-16.0); Mean Corpuscular HGB CONC 31.1 g/dL (32.0-36.0); Mean Corpuscular Volume 93.1 fL (78.0-98.0); Mean Platelet Volume 10.1 fL (7.4-10.4); Platelet Count 214 thou/uL (130-400); RBC Distribution Width 12.2 % (11.5-14.5); Red Blood Cell (RBC) Count 3.92 mill/uL (4.20-5.40); White Blood Cell (WBC) Count 6.7 thou/uL (4.8-10.8)
[2022-05-23 05:22] LABS: Anion Gap 11 mmol/L (10-20); BUN (Urea Nitrogen) 20 mg/dL (9.8-20.1); Calc. Creatinine Clearance 72 mL/min (70-130); Calcium 9.1 mg/dL (7.8-10.44); Carbon Dioxide 29 mmol/L (23-31); Chloride 100 mmol/L (98-107); Estimated GFR 87; Glucose 118 mg/dL (83-110); Potassium 3.5 mmol/L (3.5-5.1); Sodium 136 mmol/L (136-145)
[2022-05-23 06:55] LABS: Magnesium 1.6 mg/dL (1.6-2.6)
[2022-05-23] MEDS: Clopidogrel Bisulfate 75 MG TAB PO SCH (08:45)
[2022-05-23] MEDS: Metoprolol Tartrate 50 MG TAB PO SCH (08:45)
[2022-05-23] MEDS ORDERED: Lisinopril 20 MG TAB PO SCH (09:00)
[2022-05-23] MEDS ORDERED: Aspirin 325 mg Enteric Coated Tablet PO SCH (09:00)
[2022-05-23] MEDS ORDERED: Aspirin 81 mg Enteric Coated Tablet PO SCH (09:00)
[2022-05-23 12:13] VITALS: TEMP 97.2
[2022-05-23 12:36] VITALS: BP 191/83
== END 2022-05-23 15:14 | DRG 68 ==
LOC: ERS 09:48 → NEURO 13:17 → OBSVTOIN 05-23 14:52
PROVIDERS: ADMIT Family Medicine; ATTEND Internal Medicine
DX: I65.21 Occlusion and stenosis of right carotid artery (principal); I69.954 Hemiplegia and hemiparesis following unspecified cerebrovascular disease affecting left non-dominant side; G93.40 Encephalopathy, unspecified; Z20.822 Contact with and (suspected) exposure to COVID-19; E11.9 Type 2 diabetes mellitus without complications; E78.5 Hyperlipidemia, unspecified; F03.90 Unspecified dementia, unspecified severity, without behavioral disturbance, psychotic disturbance, mood disturbance, and anxiety; I25.10 Atherosclerotic heart disease of native coronary artery without angina pectoris; Z79.82 Long term (current) use of aspirin; Z79.899 Other long term (current) drug therapy; Z79.84 Long term (current) use of oral hypoglycemic drugs; Z95.1 Presence of aortocoronary bypass graft; Z88.2 Allergy status to sulfonamides; G93.89 Other specified disorders of brain
CPT/HCPCS: 36415; 36416; 70450; 70496; 70498; 70551; 71045; 80048; 80053; 80061; 82550; 82553; 83735; 84443; 84484; 85025; 85610; 85730; 93005; 93306; 95816; 95819; 95957; 96374; G0378; J0360; Q9967; U0003; U0005

== ENCOUNTER 2023-04-15 10:57 | Outpatient (CLI) | payer MEDICARE | END 2023-04-15 10:58 | disposition home or self-care (01) | LOC: BICMRI 10:57 → EDSTATUS 11:00 | PROVIDERS: ATTEND Family Medicine | DX: S72.91XA Unspecified fracture of right femur, initial encounter for closed fracture (principal); S72.431A Displaced fracture of medial condyle of right femur, initial encounter for closed fracture ==